=== PATIENT | female | born 1950 | race Two or more races ===

== ENCOUNTER → 2017-08-23 14:17 | Outpatient (CLI) | payer OTHER ==
[~2017-08-23 14:17] MED LIST: ALTACE10 MG; ALTACE5 MG; DICLOFENAC POTA50 MG PO; MULTIVITAMINAS PO; TIZANIDINE HCL2 MG PO; VOLTAREN100 GM TP
== END | disposition home or self-care (01) ==
LOC: LAB 14:17
DX: J11.1 Influenza due to unidentified influenza virus with other respiratory manifestations (principal)

== ENCOUNTER 2017-08-24 09:28 | Outpatient (CLI) | payer OTHER | END 2017-08-24 09:41 | disposition home or self-care (01) | LOC: LAB 09:28 | DX: D50.9 Iron deficiency anemia, unspecified (principal); N30.00 Acute cystitis without hematuria; I10 Essential (primary) hypertension; E78.4 Other hyperlipidemia; Z11.2 Encounter for screening for other bacterial diseases; E55.9 Vitamin D deficiency, unspecified ==

== ENCOUNTER 2017-10-16 11:40 | Outpatient (CLI) | payer OTHER | END 2017-10-16 11:44 | disposition home or self-care (01) | LOC: MAMO-SONO 11:40 | DX: Z12.31 Encounter for screening mammogram for malignant neoplasm of breast (principal); Z87.898 Personal history of other specified conditions; N60.19 Diffuse cystic mastopathy of unspecified breast ==

== ENCOUNTER 2017-11-03 13:14 | Outpatient (CLI) | payer OTHER | END 2017-11-03 13:35 | disposition home or self-care (01) | LOC: RAD 13:14 | DX: S92.341A Displaced fracture of fourth metatarsal bone, right foot, initial encounter for closed fracture (principal) ==

== ENCOUNTER 2018-04-06 11:25 | Outpatient (CLI) | payer OTHER | END 2018-04-06 11:28 | disposition home or self-care (01) | LOC: RAD 11:25 | DX: M54.2 Cervicalgia (principal) ==

== ENCOUNTER → 2018-10-08 | Outpatient (CLI) | payer OTHER | END | disposition home or self-care (01) | LOC: NUCLEAR 11:44 | DX: M81.0 Age-related osteoporosis without current pathological fracture (principal) ==

== ENCOUNTER 2018-10-16 12:18 | Outpatient (CLI) | payer OTHER | END 2018-10-16 16:01 | disposition home or self-care (01) | LOC: RAD 12:18 | DX: M54.2 Cervicalgia (principal) ==

== ENCOUNTER 2020-01-10 11:52 | Outpatient (CLI) | payer OTHER | END 2020-01-10 15:00 | disposition home or self-care (01) | LOC: RAD 11:52 | PROVIDERS: ATTEND Ophthalmology | DX: I10 Essential (primary) hypertension (principal) ==

== ENCOUNTER 2020-08-31 14:25 | Emergency (ER) | payer OTHER ==
[~2020-08-31] VITALS: Ht 160 cm; Wt 59.9 kg
[2020-08-31] MEDS ORDERED: NORVASC2.5 M1 (14:38)
== END 2020-08-31 18:37 | disposition home or self-care (01) ==
LOC: ER 14:25 → CPU-OBS 14:49 → ER 14:49
DX: R07.89 Other chest pain (principal); Z03.818 Encounter for observation for suspected exposure to other biological agents ruled out

== ENCOUNTER 2022-08-23 13:54 | Outpatient (CLI) | payer OTHER ==
[~2022-08-23 13:54] MED LIST changes: +NORVASC2.5 M1
== END 2022-08-23 13:59 | disposition home or self-care (01) ==
LOC: NUCLEAR 13:54
PROVIDERS: ATTEND Family Medicine
DX: M81.0 Age-related osteoporosis without current pathological fracture (principal)